=== PATIENT | female | born 2000 | race Caucasian/White ===

== ENCOUNTER 2021-05-18 19:52 | Emergency (ER) | payer MEDICAID ==
[2021-05-18 21:42] LABS: ACETAMINOPHEN 0 ug/mL (10-30)
== END 2021-05-18 23:33 | disposition home or self-care (01) ==
LOC: JD.ED 19:52
DX: F32.A Depression, unspecified (principal); T42.4X1A Poisoning by benzodiazepines, accidental (unintentional), initial encounter; Z91.09 Other allergy status, other than to drugs and biological substances; Z72.0 Tobacco use
CPT/HCPCS: 36415; 80053; 80143; 80179; 80306; 80307; 81025; 84443; 85007; 85027; 85610; 93005; 93010; 99284; 99285-25